=== PATIENT | female | born 1970 | race Caucasian/White ===

== ENCOUNTER 2017-01-01 06:37 | Inpatient (IN) | payer BC ==
[2016-12-28 09:06] VITALS: BMI 42.6
[2016-12-28 10:04] VITALS: BP_SYST 128; RESP 20; TEMP 97.8
[~2017-01-01] VITALS: Ht 170.2 cm; Wt 119.3 kg
[2017-01-01] VITALS (43 sets, daily range): BP systolic 101–160; RESP 11–25; TEMP 97–97.5; Ht 170.2 cm; Wt 119.3 kg
[2017-01-01] MEDS ORDERED: CEFAZOLIN 2,000 MG in SODIUM CHLORIDE 0.9% 100 ML IV ONE (06:50)
[2017-01-01] MEDS ORDERED: MIDAZOLAM 2 MG/2 ML INJ IV ONE ×2 (07:35→13:46)
[2017-01-01] MEDS ORDERED: LACT RINGERS 1,000 ML IV SCH (07:35)
[2017-01-01] MEDS ORDERED: LIDOCAINE 1% BUFFERED 1 ML SYR INTRADERM PRN (07:35)
[2017-01-01] MEDS ORDERED: ACETAMINOPHEN 500 MG TAB PO ONE (07:35)
[2017-01-01] MEDS ORDERED: ONDANSETRON 4 MG VIAL IV PRN (09:35)
[2017-01-01] MEDS ORDERED: MEPERIDINE 25 MG/ML IV PRN (09:35)
[2017-01-01] MEDS ORDERED: OXYCODONE 5 MG TAB PO PRN (09:35)
[2017-01-01] MEDS ORDERED: DILAUDID 1 MG/ML AMP IV PRN (09:35)
[2017-01-01] MEDS ORDERED: MORPHINE 2 MG/ML SYR IV PRN (09:35)
[2017-01-01] MEDS ORDERED: MORPHINE 4 MG/ML SYR IV PRN (09:35)
[2017-01-01] MEDS ORDERED: DUONEB INH ONE (10:57)
[2017-01-01] MEDS ORDERED: FENTANYL DRIP 50 ML IV PRN (11:45)
[2017-01-01] MEDS ORDERED: PHARMACY TO DOSE ZOSYN IV SCH (11:45)
[2017-01-01] MEDS: CHLORHEXIDINE 0.12% ORAL CARE FOR VENT PATIENTS 15 ML SWAB SCH (12:00)
[2017-01-01] MEDS ORDERED: NEB-BROVANA 15 MCG/2 ML INH ONE (12:06)
[2017-01-01] MEDS ORDERED: NEB-BUDESONIDE 0.5 MG INH ONE (12:07)
[2017-01-01] MEDS: DUONEB INH SCH ×4 (12:08→22:35)
[2017-01-01] MEDS: NEB-BROVANA 15 MCG/2 ML INH SCH ×2 (12:10→18:52)
[2017-01-01] MEDS: NEB-BUDESONIDE 0.5 MG INH SCH ×2 (12:10→18:52)
[2017-01-01] MEDS ORDERED: PIPERACIL/TAZO 3.375GM/50ML 50 ML IV ONE (12:50)
[2017-01-01] MEDS ORDERED: PROPOFOL 20 ML VIAL IV ONE (13:46)
[2017-01-01] MEDS ORDERED: LABETALOL 100 MG/20 ML VIAL IV PUSH ONE (13:46)
[2017-01-01] MEDS ORDERED: PROPOFOL 50ML VIAL IV ONE (13:46)
[2017-01-01] MEDS ORDERED: FENTANYL 100 MCG/2 ML AMP IV ONE (13:46)
[2017-01-01] MEDS ORDERED: ROCURONIUM 50 MG VIAL IV ONE (13:46)
[2017-01-01] MEDS ORDERED: SUCCINYLCHOLINE 20 MG/ML VL IV ONE (13:46)
[2017-01-01] MEDS ORDERED: LIDOCAINE 2% SYR 5 ML IV ONE (13:46)
[2017-01-01] MEDS ORDERED: Furosemide 40 MG/4 ML VIAL IV ONE (13:49)
[2017-01-01] MEDS: PIPERACIL/TAZO 3.375GM/50ML 50 ML IV SCH (19:46)
[2017-01-01] MEDS: PROPOFOL 100 ML 100 ML IV PRN (19:46)
[2017-01-01] MEDS: METOPROLOL TART 50 MG TAB NG SCH (22:15)
[2017-01-02] VITALS (22 sets, daily range): BP systolic 115–164; RESP 10–21; TEMP 97.3–98.4
[2017-01-02] MEDS: PROPOFOL 100 ML 100 ML IV PRN ×2 (00:14→02:31)
[2017-01-02] MEDS: PIPERACIL/TAZO 3.375GM/50ML 50 ML IV SCH ×5 (00:18→23:54)
[2017-01-02] MEDS: CHLORHEXIDINE 0.12% ORAL CARE FOR VENT PATIENTS 15 ML SWAB SCH (00:18)
[2017-01-02] MEDS: DUONEB INH SCH ×6 (02:38→22:45)
[2017-01-02] MEDS: METOPROLOL TART 50 MG TAB NG SCH ×2 (05:29→21:45)
[2017-01-02] MEDS: NEB-BROVANA 15 MCG/2 ML INH SCH ×2 (06:17→19:28)
[2017-01-02] MEDS: NEB-BUDESONIDE 0.5 MG INH SCH ×2 (06:17→19:28)
[2017-01-02] MEDS: ACETAMINOPHEN 325 MG TAB PO PRN ×2 (10:27→15:52)
[2017-01-02] MEDS: ONDANSETRON 4 MG VIAL IV PUSH PRN ×2 (10:27→14:00)
[2017-01-02] MEDS ORDERED: LORAZEPAM 0.5 MG TAB PO ONE (21:40)
[2017-01-02] MEDS ORDERED: LORAZEPAM 0.5 MG TAB ONE (21:43)
[2017-01-03] VITALS (7 sets, daily range): BP systolic 106–135; RESP 18–20; TEMP 97.8–98
[2017-01-03] MEDS: DUONEB INH SCH ×6 (02:34→23:47)
[2017-01-03] MEDS: PIPERACIL/TAZO 3.375GM/50ML 50 ML IV SCH ×4 (05:58→23:46)
[2017-01-03] MEDS: NEB-BROVANA 15 MCG/2 ML INH SCH ×2 (06:51→20:16)
[2017-01-03] MEDS: NEB-BUDESONIDE 0.5 MG INH SCH ×2 (06:51→20:16)
[2017-01-03] MEDS: ONDANSETRON 4 MG VIAL IV PUSH PRN (07:27)
[2017-01-03] MEDS: METOPROLOL TART 50 MG TAB NG SCH ×2 (08:57→21:50)
[2017-01-03] MEDS ORDERED: LORAZEPAM 0.5 MG TAB PO PRN (11:35)
[2017-01-03] MEDS ORDERED: PHARMACY TO DOSE VANCOMYCIN IV SCH (15:05)
[2017-01-03] MEDS: VANCOMYCIN 1,500 MG in SODIUM CHLORIDE 0.9% 250 ML IV SCH (17:05)
[2017-01-03] MEDS: LORAZEPAM 0.5 MG TAB PO PRN ×2 (17:38→22:02)
[2017-01-03] MEDS ORDERED: SALINE FLUSH 10 ML FLUSH PRN (20:45)
[2017-01-04] MEDS: VANCOMYCIN 1,500 MG in SODIUM CHLORIDE 0.9% 250 ML IV SCH ×2 (00:34→08:25)
[2017-01-04] MEDS: DUONEB INH SCH ×3 (02:31→11:40)
[2017-01-04] MEDS: ONDANSETRON 4 MG VIAL IV PUSH PRN ×2 (02:52→12:46)
[2017-01-04 04:25] VITALS: BP_SYST 114; RESP 18
[2017-01-04] MEDS ORDERED: SODIUM CHLORIDE 0.9% FLUSH BAG 500 ML IV SCH (06:00)
[2017-01-04] MEDS: PIPERACIL/TAZO 3.375GM/50ML 50 ML IV SCH ×2 (06:25→11:26)
[2017-01-04] MEDS: NEB-BROVANA 15 MCG/2 ML INH SCH (06:30)
[2017-01-04] MEDS: NEB-BUDESONIDE 0.5 MG INH SCH (06:30)
[2017-01-04 07:36] VITALS: BP_SYST 135; RESP 18; TEMP 97.6
[2017-01-04] MEDS ORDERED: SALINE FLUSH 10 ML FLUSH SCH (08:00)
[2017-01-04] MEDS: METOPROLOL TART 50 MG TAB NG SCH (08:24)
[2017-01-04] MEDS: ACETAMINOPHEN 325 MG TAB PO PRN (08:25)
[2017-01-04] MEDS: LORAZEPAM 0.5 MG TAB PO PRN (09:28)
[2017-01-04 12:43] VITALS: BP_SYST 130; RESP 18; TEMP 97.7
[2017-01-04 15:45] VITALS: BP_SYST 130; RESP 18; TEMP 97.7
== END 2017-01-04 17:08 | disposition home or self-care (01) | DRG 208 ==
LOC: ENRESERVTM → ENRESERVDT → SURG 06:37 → SDS 11:12 → ENPENDDIS 11:12 → ICU 11:44 → 3NT 01-02 15:46
PROVIDERS: ADMIT Internal Medicine; ATTEND Internal Medicine
PROC: 0BH17EZ Insertion of Endotracheal Airway into Trachea, Via Natural or Artificial Opening (ICD-10-PCS; principal; 2017-01-01)
PROC: 5A1935Z Respiratory Ventilation, Less than 24 Consecutive Hours (ICD-10-PCS; 2017-01-01)
DX: J96.01 Acute respiratory failure with hypoxia (principal); J69.0 Pneumonitis due to inhalation of food and vomit; J15.212 Pneumonia due to Methicillin resistant Staphylococcus aureus; J44.0 Chronic obstructive pulmonary disease with (acute) lower respiratory infection; Z68.41 Body mass index [BMI] 40.0-44.9, adult; N93.9 Abnormal uterine and vaginal bleeding, unspecified; E66.01 Morbid (severe) obesity due to excess calories; Z53.8 Procedure and treatment not carried out for other reasons; Z79.82 Long term (current) use of aspirin
CPT/HCPCS: 36415; 36600; 71010; 80051; 80069; 81025; 82330; 82803; 82947; 83735; 83880; 84484; 85025; 87071; 87077; 87186; 93306; 94002; 94003; 94640; 94799; 99233; 99239; 99291; 99292